=== PATIENT | male | born 1965 | race African-American/Black ===

== ENCOUNTER 2018-05-12 21:08 | Emergency (ER) | payer MEDICARE, OTHER ==
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
== END 2018-05-13 00:10 | disposition home or self-care (01) ==
LOC: ERS 21:08
DX: S43.402A Unspecified sprain of left shoulder joint, initial encounter (principal); F17.210 Nicotine dependence, cigarettes, uncomplicated; V43.62XA Car passenger injured in collision with other type car in traffic accident, initial encounter
CPT/HCPCS: 99406

== ENCOUNTER 2018-05-20 11:18 | Emergency (ER) | payer MEDICARE, OTHER ==
[2018-05-20] MEDS ORDERED: Ketorolac Tromethamine 30 MG/ML VIAL ONE (12:00)
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
== END 2018-05-20 12:58 | disposition home or self-care (01) ==
LOC: ERS 11:18
DX: M25.512 Pain in left shoulder (principal); F17.210 Nicotine dependence, cigarettes, uncomplicated
CPT/HCPCS: 96372; J1885

== ENCOUNTER 2018-08-24 11:11 | Emergency (ER) | payer MEDICARE ==
[2018-08-24 11:52] LABS: Clarity TURBID (Clear); Glucose, Urine (Dipstick) Negative (Negative); Leukocyte Large (Negative); Specific Gravity, Urine 1.036 (1.002-1.036)
[2018-08-24 11:56] LABS: Pathc Cast-AUWi Flag 50.13 (0-2.49); Yeast-AUWi Flag 454.3 (0-25.0)
[2018-08-24 12:04] LABS: Bilirubin Unable to Interpret (Negative); Blood, Urine Large (Negative); Nitrite Unable to Interpret (Negative)
[2018-08-24 12:05] LABS: Protein, Urine (Dipstick) 100 mg/dL (Neg-Trace); pH, Urine 6.5 (5.0-9.0)
[2018-08-24 12:06] LABS: Hyaline Casts/LPF NONE SEEN LPF (0-3 Hyaline); Other Casts/LPF None Seen LPF (0-3 Hyaline); RBC/HPF GREATER THAN 50-TNTC HPF (0-3)
[2018-08-24 12:07] LABS: Mean Corpuscular HGB CONC 33.1 g/dL (32.0-36.0); Mean Corpuscular Hemoglobin 30.9 pg (27.0-31.0); Mean Corpuscular Volume 93.3 fL (78.0-98.0); Mean Platelet Volume 6.7 fL (7.4-10.4); Platelet Count 255 thou/uL (130-400); RBC Distribution Width 11.8 % (11.5-14.5); Red Blood Cell (RBC) Count 4.85 mill/uL (4.70-6.10); White Blood Cell (WBC) Count 18.9 thou/uL (4.8-10.8)
[2018-08-24 12:07] LABS: Bacteria/HPF 1+ HPF (None Seen); Yeast-All Forms None Seen HPF (None Seen)
[2018-08-24 12:26] LABS: Band 13 % (5-11); Eosinophils 1 % (0-10); Lymphocytes 10 % (21-51); MDiff Complete? YES; Metamyelocyte 1 % (0-0); Monocytes 5 % (0-10); Neutrophil 66 % (42-75); Reactive Lymphocytes 4 % (0-10)
[2018-08-24 12:40] LABS: ALT (SGPT) 10 U/L (8-55); AST (SGOT) 15 U/L (5-34); Albumin 4.2 g/dL (3.5-5.0); Alkaline Phosphatase 76 U/L (40-150); Anion Gap 14 mmol/L (10-20); BUN (Urea Nitrogen) 16 mg/dL (8.4-25.7); Bilirubin, Total 0.7 mg/dL (0.2-1.2); Calc. Creatinine Clearance 0 mL/min (70-130); Calcium 9.5 mg/dL (7.8-10.44); Carbon Dioxide 25 mmol/L (22-29); Chloride 101 mmol/L (98-107); Estimated GFR-MDRD 70; Globulin 3.2 g/dL (2.4-3.5); Glucose 92 mg/dL (70-105); Potassium 4.1 mmol/L (3.5-5.1); Protein, Total 7.4 g/dL (6.0-8.3); Sodium 136 mmol/L (136-145)
== END 2018-08-24 13:22 | disposition left against medical advice (07) ==
LOC: ERS 11:11
DX: Z53.21 Procedure and treatment not carried out due to patient leaving prior to being seen by health care provider (principal)
CPT/HCPCS: 36415; 80053; 81003; 81015; 85025; 87077; 87086; 87186

== ENCOUNTER 2018-09-03 08:49 | Outpatient (CLI) | payer MEDICARE ==
--- NOTE | 2018-09-03 09:47 | CT ---
PRE AND POST CONTRAST ENHANCED CT IMAGES ABDOMEN AND PELVIS: HISTORY: History of hematuria. FINDINGS: Pre- and [id number] CT images of the abdomen and pelvis obtained. The lung bases are unremarkable. No definite evidence of free intraperitoneal air is seen. The liver, spleen, pancreas, gallbladder, adrenal glands, and kidneys are unremarkable. No evidence of renal calculi or masses seen. The collecting systems are unremarkable. The urinary bladder is grossly unremarkable, except for maite e possible mucosal thickening which may represent cystitis. Correlate with direct visualization. Th e rest of the abdomen and pelvis is unremarkable. IMPRESSION: Some urinary bladder thickening possibly representing cystitis. Otherwise, unremarkable CT of abdome n and pelvis. POS: [facility]
== END 2018-09-03 08:50 | disposition home or self-care (01) ==
LOC: BICCT 08:49
PROVIDERS: ATTEND Family Medicine
DX: R31.9 Hematuria, unspecified (principal); N32.89 Other specified disorders of bladder
CPT/HCPCS: 74178